=== PATIENT | male | born 1980 | race Caucasian/White ===

== ENCOUNTER 2024-11-28 12:00 | Emergency (ER) | payer OTHER, SELFPAY ==
[2024-11-28 12:06] VITALS: BP 151/95
[2024-11-28 12:56] VITALS: BMI 29.3
[2024-11-28 12:59] VITALS: BP 138/86
--- NOTE | 2024-11-28 13:33 | ED.GENMED ---
History of Present Illness
General
Chief Complaint: Headache
Source: patient
Exam Limitations: none
Time Seen by Provider: 11/28/24 13:27
History of Present Illness
History of Present Illness:
See MDM
Past History
Past History
ED Past Medical History: None
ED Past Surgical History: None
Social History
Tobacco: Non-smoker
Alcohol: None
Phy Exam
Physical Exam
Physical Exam:
See MDM
Course
Orders/Labs/Results
Orders:
Orders
11/28/24 13:33
0.9% Sodium Chloride 1000 ml [Nss] 1,000 ml IV BOLUS
11/28/24 13:48
Complete Blood Count/With Diff Urgent
Comprehensive Metabolic Panel Urgent
11/28/24 13:48
11/28/24 13:48
Vital Signs
Initial and Last Documented VS:
Initial Vital Signs
Temp Pulse Resp BP Pulse Ox
98.0 F 74 16 151/95 98
11/28/24 12:06 11/28/24 12:06 11/28/24 12:06 11/28/24 12:06 11/28/24 12:06
Last Documented Vital Signs
Temp Pulse Resp BP Pulse Ox
98.0 F 80 16 138/86 99
11/28/24 12:06 11/28/24 12:59 11/28/24 12:59 11/28/24 12:59 11/28/24 12:59
MDM/Problems Addressed
Differential Diagnosis Includes:
HPI and MDM Narrative:
43-year-old male presenting for evaluation of intermittent dizziness. This is ongoing for the past week. He followed up with his PCP and diagnosed with likely vertigo. He was prescribed meclizine but did not start taking it until today. On
arrival, patient does feel somewhat better but does acknowledge that he is leaving for [place] on a trip soon and wants to make sure he is okay. He has no cerebellar signs and I cannot reproduce the symptoms. I did question his dry mucous membranes.
He does work as a wood and wood products labourer and believes that he is drinking enough water but symptoms are worse when he stands up quickly. We discussed likely orthostasis and possibly vertigo. Will obtain basic blood work and provide IV fluids
Physical exam
General: Well appearing and non-toxic
HEENT: protecting airway. Dry mucous membranes. EOMI. No nystagmus
Neck: appears supple
CV: No evidence of cyanosis
Resp: No accessory muscle use
Abd: Non-distended
Extremities: No deformities
Neuro: alert. Normal finger-nose bilaterally. Negative [place]
Psych: Normal affect
Skin: Intact
Problems Addressed including Acute and Chronic Conditions affecting care:
1. Intermittent dizziness
Acuity: acute
Prognosis: stable
Details: Symptoms are improved with meclizine. We did discuss the possibility of orthostasis as well. Will obtain basic blood work and provide IV fluids
Updates
Patient feeling somewhat better after IV fluids. Labs within normal limits. Discussed potentially vertigo versus orthostasis but discussed the importance of outpatient follow-up with PCP. Discussed outpatient MRI of brain if symptoms persist
Differential Diagnosis (but not limited to): Vertigo, orthostasis
Testing considered: CT head but he has no focal deficits
Drug therapy (if applicable): OTC meds, please see d/c instruction regarding Rx drugs
Amount and/or Complexity of Data Reviewed
Clinical info obtained from: Patient
External data reviewed: N/A
Labs I independently reviewed (but not limited to): Electrolytes normal
Radiology: N/A
Pulse Ox: not hypoxic
EKG independently reviewed: N/A
Manager Ed: N/A
Critical Care: N/A
Risk of Complication:
Social Determinants of health: Good social support
Discussed with other providers: N/A
Escalation of Care includes Admit/Obs: After being observed in the Emergency Department, pt stable for discharge.
Occasional wrong word or 'sound a like' substitutions may have occurred due to the inherent limitations of voice recognition software. Read the chart carefully and recognize, using context, where substitutions have occurred.
*Critical Care Note
Total Time (30-74mins, 75-104mins- exclusive of procedures): Not Applicable
ED Attending Note
-
Portions of this chart may have been created with voice recognition software.� Occasional wrong word or��sound alike� substitutions may have occurred due to the inherent limitations of voice recognition software.
Discharge Plan
Departure
Patient Disposition: Home (Routine Discharge)
Date of Disposition: 11/28/24
Time of Disposition: 15:26
Patient with high blood pressure during this ER visit?: No
Discharge Problem:
Dizziness
Instructions: Dizziness
Referrals:
Long Santoyo PA-C [Family Provider] -
Activity Restrictions/Additional Instructions:
Please return for any worsening symptoms.
You may return at any time if you have further concerns.
Please follow up with your doctor at the first available appointment, preferably this week.
If symptoms persist, please talk to your doctor whether or not outpatient brain MRI is warranted.
Thank you for choosing [facility].
Interventions
Interventions:
*Risk Screen - Suicide Last Done: 11/28/24 12:06
*General Assessment Last Done: 11/28/24 12:58
*Neglect/Abuse Screening Last Done: 11/28/24 12:06
*ED- Fall Risk Assessment Last Done: 11/28/24 12:58
*ED COVID-19 Vaccine History Last Done: 11/28/24 12:58
ED- Neurological Assessment Last Done: 11/28/24 12:58
Discharge Date and Time
Print Language: ALBAN[place]
[2024-11-28] MEDS: NSS 1000 IV (13:48)
[2024-11-28 13:57] LABS: % Basophils 0.6 % (0-2); % Eosinophils 1.6 % (0-6); % Immature Granulocytes 0.2 % (0-0.5); % Neutrophils 61.6 % (42.2-75.2); Absolute Basophils 0.1 10^3/uL (0-0.2); Absolute Eosinophils 0.1 10^3/uL (0-0.7); Absolute Lymphocytes 2.5 10^3/uL (1.2-3.4); Absolute Monocytes 0.5 10^3/uL (0.1-0.6); Absolute Neutrophils 5.1 10^3/uL (1.4-6.5); Hematocrit 46.1 % (39.0-52.0); Hemoglobin 16.2 g/dL (13.0-18.0); Mean Corp Hgb Conc. 35.1 g/dL (33.0-37.0); Mean Corpuscular Hgb 29.2 pg (27.0-31.0); Mean Corpuscular Volume 83.1 fL (80.0-94.0); Mean Platelet Volume 8.8 fL (7.4-10.4); Nucleated Red Blood Cells % 0 % (-); Platelet Count 249 10^3/uL (130-400); Red Blood Cell Count 5.55 10^6/uL (4.70-6.10); Red Cell Dist. Width 12.9 % (11.5-14.5); White Blood Cell Count 8.3 10^3/uL (4.8-10.8)
[2024-11-28 14:06] LABS: ALT (SGPT) 26 U/L (0-50); AST (SGOT) 28 U/L (17-59); Albumin 4.8 g/dl (3.5-5.0); Alkaline Phosphatase 45 U/L (38-126); Blood Urea Nitrogen 18 mg/dl (9-20); Calcium 9.8 mg/dl (8.4-10.2); Carbon Dioxide 28 mmol/L (22-30); Chloride 107 mmol/L (98-107); Estimated Creatinine Clearance > 125 ml/min; Glucose 96 mg/dl (70-99); Potassium 4.4 mmol/L (3.5-5.1); Sodium 142 mmol/L (135-145); Total Bilirubin 0.7 mg/dl (0.2-1.3); Total Protein 7.3 g/dl (6.3-8.2); eGFR > 60.00
[2024-11-28 15:40] VITALS: BP 140/89
== END 2024-11-28 15:42 | disposition home or self-care (01) ==
LOC: EMR 12:00
PROVIDERS: EMERGENCY PHYSICIAN Student in an Organized Health Care Education/Training Program; FAMILY PHYSICIAN Physician Assistant
DX: R42 Dizziness and giddiness (principal)
CPT/HCPCS: 96360; 99284; 80053; 85025